=== PATIENT | female | born 1955 | race Caucasian/White ===

== ENCOUNTER 2019-11-30 08:10 | Emergency (ER) | payer MEDICARE ==
[~2019-11-30] VITALS: Ht 152.4 cm; Wt 67.6 kg
[2019-11-30] MEDS: ASPIRIN CHEWABLE 81 MG TABLET. PO ONE (08:32)
[2019-11-30] MEDS: MORPHINE SULFATE 4 MG/ML DISP.SYRIN. IV ONE (08:33)
--- NOTE | 2019-11-30 08:33 | PHYS DOC ---
Past History Past Medical History: Arthritis Past Surgical History: Hysterectomy Additional Past Surgical Histo: back surgery Smoking: Quit Greater Than 1 Year Alcohol Use: None General Adult EDM: Chief Complaint: CHEST PAIN HPI: HPI: Patient is a 64-year-old female who presents to the emergency department for evaluation. She states that about 2 hours prior to arrival she began having anterior chest pressure radiating to her left arm, some shortness of breath. She has had some nausea and vomiting. She has not had any known prior cardiac history. She has not taken any medications today. EKG shows an acute inferior/posterior STEMI. Review of Systems: Review of Systems: Constitutional: Denies fever or chills Eyes: Denies change in visual acuity HENT: Denies nasal congestion or sore throat Respiratory: Denies cough Cardiovascular: Reports chest pain and shortness of breath. GI: Denies abdominal pain, nausea, vomiting, bloody stools or diarrhea : Denies dysuria Musculoskeletal: Denies back pain or joint pain Integument: Denies rash Neurologic: Denies headache, focal weakness or sensory changes Endocrine: Denies polyuria or polydipsia Lymphatic: Denies swollen glands Psychiatric: Denies depression or anxiety Heart Score: HEART Score for Chest Pain: HEART Score for Chest Pain Response (Comments) Value History Highly Suspicious [address] Depression 2 Age > 65 2 Risk Factors No Risk Factors 0 Troponin >1-<3x Normal Limit 1 Total 7 Risk Factors: Risk Factors: DM, Current or recent (<one month) smoker, HTN, HLP, family history of CAD, obesity. Risk Scores: Score 0 - 3: 2.5% MACE over next 6 weeks - Discharge Home Score 4 - 6: 20.3% MACE over next 6 weeks - Admit for Clinical Observation Score 7 - 10: 72.7% MACE over next 6 weeks - Early Invasive Strategies Allergies: Allergies: Allergies Coded Allergies Type Severity Reaction Last Updated Verified No Known Drug Allergies 11/30/19 No Physical Exam: PE: PHYSICAL EXAM: CONSTITUTIONAL: Uncomfortable appearing HEAD: normocephalic, atraumatic EENT: PERRL, EOMI. Conjunctivae normal color, sclerae non-icteric; moist mucous membranes. NECK: Supple, non-tender; no meningismus. LUNGS: Lungs CTA, breathing even and unlabored. Normal air movement. HEART: Regular rate and rhythm, no murmur CHEST: No deformity; non-tender ABDOMEN: The abdomen is soft, and non-tender, no masses or bruits. EXTREM: Normal ROM; no deformity, no calf tenderness. Normal pulses palpable in all extremities. There is no pedal edema. SKIN: No rash; no diaphoresis NEURO: Alert; normal speech and cognition; CN's grossly intact; strength grossly intact without focal deficit. BACK: No CVA TTP. Current Patient Data: Labs: Laboratory Tests Test 11/30/19 08:25 White Blood Count 6.0 x10^3/uL Red Blood Count 4.46 x10^6/uL Hemoglobin 14.0 g/dL Hematocrit 41.7 % Mean Corpuscular Volume 94 fL Mean Corpuscular Hemoglobin 32 pg Mean Corpuscular Hemoglobin Concent 34 g/dL Red Cell Distribution Width 13.6 % Platelet Count 362 x10^3/uL Neutrophils (%) (Auto) 45 % Lymphocytes (%) (Auto) 47 % Monocytes (%) (Auto) 5 % Eosinophils (%) (Auto) 2 % Basophils (%) (Auto) 1 % Neutrophils # (Auto) 2.7 x10^3uL Lymphocytes # (Auto) 2.8 x10^3/uL Monocytes # (Auto) 0.3 x10^3/uL Eosinophils # (Auto) 0.1 x10^3/uL Basophils # (Auto) 0.1 x10^3/uL Prothrombin Time 9.7 SEC Prothromb Time International Ratio 0.9 Activated Partial Thromboplast Time 24 SEC Sodium Level 139 mmol/L Potassium Level 4.0 mmol/L Chloride Level 106 mmol/L Carbon Dioxide Level 26 mmol/L Anion Gap 7 Blood Urea Nitrogen 11 mg/dL Creatinine 0.8 mg/dL Estimated GFR (Cockcroft-Gault) 71.8 BUN/Creatinine Ratio 14 Glucose Level 146 mg/dL Calcium Level 9.2 mg/dL Total Bilirubin Pending Aspartate Amino Transf (AST/SGOT) Pending Alanine Aminotransferase (ALT/SGPT) Pending Alkaline Phosphatase Pending Troponin I Quantitative 0.910 ng/mL [id number]-[id number]-Type Natriuretic Peptide Pending Total Protein Pending Albumin Pending Albumin/Globulin Ratio Pending Current Medications Medications (Trade) Dose Ordered Sig/[place] Route PRN Reason Start Time Stop Time Status Last Admin Dose Admin Aspirin (Aspirin Chewable) 324 mg 1X ONCE PO 11/30/19 08:30 11/30/19 08:51 DC 11/30/19 08:32 Morphine Sulfate (Morphine 4mg Syringe) 4 mg 1X ONCE IV 11/30/19 08:30 11/30/19 08:51 DC 11/30/19 08:33 Metoprolol Tartrate (Lopressor Vial) 5 mg 1X ONCE IV 11/30/19 08:30 11/30/19 08:51 DC 11/30/19 08:37 Heparin Sodium (Porcine) (Heparin Sodium) 4,000 unit 1X ONCE IV 11/30/19 08:45 11/30/19 08:52 DC 11/30/19 08:38 Ondansetron HCl (Zofran) 4 mg 1X ONCE IVP 11/30/19 08:45 11/30/19 08:51 DC 11/30/19 08:41 Heparin Sodium (Porcine) (Heparin Sodium) 10,000 unit STK-MED ONCE .ROUTE 11/30/19 08:35 11/30/19 08:52 DC Vital Signs: Vital Signs Date Time Temp Pulse Resp B/P (MAP) Pulse Ox O2 Delivery O2 Flow Rate FiO2 11/30/19 08:10 86 24 167/81 (109) 98 Room Air EKG: EKG: Normal sinus rhythm at a rate of 83 bpm, normal axis, normal intervals, there is ST elevation inferiorly with some anterior ST depressions, suggestive of an acute inferior/posterior ST elevation OR. [] Radiology/Procedures: Radiology/Procedures: PROCEDURE: PORTABLE CHEST 1V AP chest. HISTORY: Chest pain AP view was taken of the chest. Lungs are clear. Heart is normal in size. There is no effusion. IMPRESSION: 1. No acute chest disease.[] Course & Med Decision Making: Course & Med Decision Making Pertinent Labs and Imaging studies reviewed. (See chart for details) [] 8:30 AM: I spoke with wafer production worker at [facility], Dr. Esparza, who accepted the patient in transfer. Nitrates will be held/use judiciously if needed, given the large inferior nature of the OR and possibility of RV involvement. CRITICAL CARE TIME: 36 Minutes, excluding any procedures and care of other patients. Dragon Disclaimer: Dragon Disclaimer: This electronic medical record was generated, in whole or in part, using a voice recognition dictation system. Departure Departure: Impression: Primary Impression: Acute ST-elevation myocardial infarction Disposition: XFER SHT-TRM HOSP Condition: CRITICAL Referrals: KINGSTON MENESES PAC (PCP) WHIT PALOMINO MD November 30, 2019 08:33
[2019-11-30] MEDS ORDERED: HEPARIN for IV BOLUS 10,000 UNIT/10 ML VIAL. ONE (08:35)
[2019-11-30 08:37] VITALS: BP 160/96
[2019-11-30] MEDS: METOPROLOL TARTRATE 5 MG/5 ML VIAL. IV ONE (08:37)
[2019-11-30] MEDS: HEPARIN for IV BOLUS 10,000 UNIT/10 ML VIAL. IV ONE (08:38)
[2019-11-30] MEDS: ONDANSETRON PF 4 MG/2 ML VIAL. IVP ONE (08:41)
[2019-11-30 08:43] LABS: BASO # 0.1 x10^3/uL (0.0-0.2); BASO % 1 % (0-3); EOS # 0.1 x10^3/uL (0.0-0.7); EOS % 2 % (0-3); HEMATOCRIT 41.7 % (36.0-47.0); LYMPH # 2.8 x10^3/uL (1.0-4.8); LYMPH % 47 % (24-48); MEAN CORPUSCULAR HEMOGLOBIN 32 pg (25-35); MEAN CORPUSCULAR HGB CONC 34 g/dL (31-37); MEAN CORPUSCULAR VOLUME 94 fL (79-100); MONO # 0.3 x10^3/uL (0.0-1.1); MONO % 5 % (0-9); NEUT # 2.7 x10^3uL (1.8-7.7); NEUT % 45 % (31-73); PLATELET COUNT 362 x10^3/uL (140-400); RED BLOOD COUNT 4.46 x10^6/uL (3.50-5.40); RED CELL DISTRIBUTION WIDTH 13.6 % (11.5-14.5)
--- NOTE | 2019-11-30 08:45 | RAD ---
AP chest. HISTORY: Chest pain AP view was taken of the chest. Lungs are clear. Heart is normal in size. There is no effusion. IMPRESSION: 1. No acute chest disease. Electronically signed by: Eliecer Fuentes MD (11/30/2019 8:43 AM) [id number]
[2019-11-30 08:52] LABS: CALCIUM 9.2 mg/dL (8.5-10.1); CREATININE 0.8 mg/dL (0.6-1.0); GFR 71.8
[2019-11-30 09:05] LABS: ALBUMIN 3.5 g/dL (3.4-5.0); ALBUMIN/GLOBULIN RATIO 1.1 (1.0-1.7); TOTAL BILIRUBIN 0.3 mg/dL (0.2-1.0); TOTAL PROTEIN 6.8 g/dL (6.4-8.2)
--- NOTE | 2019-11-30 09:12 | EKG ---
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
== END 2019-11-30 08:46 | disposition short-term general hospital (02) ==
LOC: ER 08:10
DX: I21.3 ST elevation (STEMI) myocardial infarction of unspecified site (principal); M19.90 Unspecified osteoarthritis, unspecified site; Z87.891 Personal history of nicotine dependence
CPT/HCPCS: 36415; 71045; 80053; 83880; 84484; 85025; 85610; 85730; 93005; 96374; 96375; 99291; J1644; J2270; J2405; J3490; 99285-25

== ENCOUNTER → 2020-12-02 | Outpatient (CLI) | payer MEDICARE ==
--- NOTE | 2020-12-02 09:37 | RAD ---
EXAM: Chest CT without intravenous contrast. HISTORY: Dyspnea. TECHNIQUE: Computed tomographic images of the chest were obtained without contrast. Multiplanar refor matting was performed. *One or more of the following individualized dose reduction techniques were utilized for this examina tion: 1. Automated exposure control. 2. Adjustment of the mA and/or kV according to patient size. 3. Use of iterative reconstruction technique. COMPARISON: 08/31/2018. FINDINGS: The heart is normal in size. There is heavily calcified atherosclerotic plaque involving th e coronary arteries. The aorta is normal in caliber. There are few calcified mediastinal and hilar ly mph nodes. There is no lymphadenopathy. There are bilateral breast implants with intracapsular ruptur e. There is no pneumothorax or pleural effusion. There is a 4 mm nodule within the posterior superior se gment of the right lower lobe. There is a 3 mm pleural-based nodule within the lateral right lower lo be. There is a 2 mm groundglass nodule with adjacent 2 mm pleural-based groundglass nodule within the lateral left lower lobe. There is no infiltrate. There is cholelithiasis. There is colonic diverticulosis. There is no acute finding involving the vis ualized upper abdomen. There is degenerative change involving the visualized spine. There is no acute osseous finding. IMPRESSION: 1. Small bilateral pulmonary nodules measuring up to 4 mm. Follow-up can be performed in one year if there are risk factors for pulmonary neoplasm. 2. No acute thoracic finding. 3. Bilateral breast implants with intracapsular rupture. 4. Coronary artery atherosclerosis. 5. Incidental cholelithiasis and colonic diverticulosis. Electronically signed by: Zoë Schwartz MD (12/02/2020 9:34 AM) [id number]
== END ==
LOC: CT 08:56
PROVIDERS: ATTEND Internal Medicine Cardiovascular Disease
DX: K80.20 Calculus of gallbladder without cholecystitis without obstruction (principal); K57.30 Diverticulosis of large intestine without perforation or abscess without bleeding; I25.10 Atherosclerotic heart disease of native coronary artery without angina pectoris; R91.1 Solitary pulmonary nodule
CPT/HCPCS: 71250

== ENCOUNTER → 2021-09-22 | Outpatient (CLI) | payer MEDICARE ==
--- NOTE | 2021-09-22 10:14 | RAD ---
STUDY: CT chest without contrast INDICATION: Pulmonary nodule follow-up. Smoking history with reported cessation 4 years prior. Half-p ack per day for 40 years equivalent to a 20 pack-year history. COMPARISON: 12/02/2020 TECHNIQUE: Helical CT imaging of the chest performed without the use of intravenous contrast. [place] l and coronal reformats were obtained. One or more of the following individualized dose reduction techniques were utilized for this examinat ion: 1. Automated exposure control 2. Adjustment of the mA and/or kV according to patient size 3. Use of iterative reconstruction technique. FINDINGS: Lungs: Several small pulmonary nodules on the right and left measuring 4 mm or less are unchanged. No significant new nodule. Vasculature: Multifocal calcific atherosclerosis with trivessel coronary artery involvement. Mediastinum/abdoulaye: No lymphadenopathy or pericardial effusion. Neck/axilla/chest wall: Unchanged configuration of bilateral breast implants with capsular rupture. A xillary lymph nodes are subcentimeter in size. Bones: Degenerative changes without significant progression. Upper abdomen: Partially imaged small layering gallstones. Several colonic diverticuli. IMPRESSION: 1. Previously described pulmonary nodules measuring 4 mm or less are unchanged. No significant new n odule. Lung-RADS category 2. Continue with annual low-dose screening CT of the chest assuming the pat ient meets guidelines. 2. Trivessel calcific coronary artery disease. Small layering gallstones. Electronically signed by: STEF CHRISTIANSEN MD (09/22/2021 10:12 AM) [facility]
== END ==
LOC: CT 08:13
PROVIDERS: ATTEND Internal Medicine Critical Care Medicine
DX: R91.8 Other nonspecific abnormal finding of lung field (principal); I25.10 Atherosclerotic heart disease of native coronary artery without angina pectoris; K80.80 Other cholelithiasis without obstruction; K57.30 Diverticulosis of large intestine without perforation or abscess without bleeding
CPT/HCPCS: 71250